=== PATIENT | male | born 1970 ===

== ENCOUNTER → 2018-06-05 22:17 | Outpatient (REF) | payer OTHER, SELFPAY ==
[2018-06-05 23:27] LABS: Add Manual Diff / Slide Review NO; Basophils Absolute Auto 100 /uL (0-100); Basophils Percent Auto 1.1 % (0-2); Eosinophils Absolute Auto 100 /uL (0-450); Eosinophils Percent Auto 1.2 % (2-4); Hematocrit 46.1 % (41-53); Hemoglobin 15.6 g/dL (13.5-17.5); Lymphocytes Absolute Auto 2000 /uL (1100-4500); Lymphocytes Percent Auto 29.7 % (25-40); Mean Corpuscular HGB Conc 33.8 % (30-36); Mean Corpuscular Hemoglobin 31.5 PG (26-34); Mean Corpuscular Volume 93.1 fL (80-100); Monocytes Absolute Auto 500 /uL (0-900); Monocytes Percent Auto 7.5 % (3-14); Neutrophils Absolute Auto 4200 /uL (1500-7000); Neutrophils Percent Auto 60.5 % (50-75); Platelet Count 218 X10^3/uL (150-400); Red Blood Cell Count 4.95 X10^6/uL (4.5-5.9); Red Cell Distribution Width 12.8 % (11.6-14.8); White Blood Cell Count 6.9 X10^3/uL (4.5-11.0)
[2018-06-06 00:05] LABS: Free T3, Triiodothyronine Free 4.41 pg/mL (2.77-5.27); Free T4, Direct Thyroxine 1.17 ng/dL (0.78-2.19)
[2018-06-06 00:19] LABS: Thyroid Stimulating Hormone 0.73 uIU/mL (0.47-4.68)
[2018-06-08 14:25] LABS: PSA Total 0.81 ng/mL (< 4.01)
[2018-06-08 19:50] LABS: Estradiol 34 pg/mL (< 40)
[2018-06-10 09:28] LABS: Testosterone, Total 279.3
[2018-06-10 09:30] LABS: Sex Hormone Binding Globulin 14.5
== END ==
LOC: LAB 22:17
PROVIDERS: Visit Provider Naturopath
DX: R68.82 Decreased libido (principal); Z13.89 Encounter for screening for other disorder; R53.83 Other fatigue; F43.21 Adjustment disorder with depressed mood; R63.5 Abnormal weight gain
CPT/HCPCS: 36415; 82670; 82728; 84153; 84154; 84270; 84402; 84403; 84439; 84443; 84481; 85025

== ENCOUNTER → 2018-09-04 21:23 | Outpatient (ROUT) | payer OTHER, SELFPAY ==
[2018-09-05 04:12] LABS: Add Manual Diff / Slide Review NO; Basophils Absolute Auto 0 /uL (0-100); Basophils Percent Auto 0.4 % (0-2); Eosinophils Absolute Auto 100 /uL (0-450); Eosinophils Percent Auto 1.2 % (2-4); Hematocrit 49.7 % (41-53); Hemoglobin 16.4 g/dL (13.5-17.5); Lymphocytes Absolute Auto 1900 /uL (1100-4500); Lymphocytes Percent Auto 25.8 % (25-40); Mean Corpuscular HGB Conc 32.9 % (30-36); Mean Corpuscular Hemoglobin 31.1 PG (26-34); Mean Corpuscular Volume 94.5 fL (80-100); Monocytes Absolute Auto 500 /uL (0-900); Monocytes Percent Auto 6.6 % (3-14); Neutrophils Absolute Auto 4800 /uL (1500-7000); Platelet Count 200 X10^3/uL (150-400); Red Blood Cell Count 5.26 X10^6/uL (4.5-5.9); Red Cell Distribution Width 13.3 % (11.6-14.8); White Blood Cell Count 7.2 X10^3/uL (4.5-11.0)
[2018-09-05 05:04] LABS: Estradiol, Total 30.2 pg/mL
[2018-09-07 15:42] LABS: PSA Total 0.91 ng/mL (< 4.01)
[2018-09-09 09:35] LABS: Testosterone,Free 28.7
[2018-09-10 08:58] LABS: Testosterone, Total 729.7
== END ==
PROVIDERS: Visit Provider Naturopath
DX: E29.1 Testicular hypofunction (principal); R53.83 Other fatigue; R68.82 Decreased libido
CPT/HCPCS: 36415; 82670; 84153; 84154; 84270; 84402; 84403; 85025